=== PATIENT | female | born 1935 | race Caucasian/White ===

== ENCOUNTER 2016-11-06 10:51 | Emergency (ER) | payer BC, OTHER ==
[2016-11-06 11:22] VITALS: PULSE 66; BMI 23.6
--- NOTE | 2016-11-06 12:13 | PDOC ---
History of Present Illness - General Chief Complaint: Injury Stated Complaint: KNEE PAIN Time Seen by Provider: 11/06/16 12:01 Past History - Past Medical History Allergies/Adverse Reactions: Allergies Allergy/AdvReac Type Severity Reaction Status Date / Time atorvastatin calcium Allergy Verified 06/09/15 10:30 [From Lipitor] diphenhydramine HCl Allergy Verified 06/09/15 10:30 [From Benadryl] erythromycin base Allergy Verified 06/09/15 10:30 [Erythromycin Base] meperidine HCl [From Demerol] Allergy Verified 06/09/15 10:30 lobster Allergy Uncoded 06/09/15 10:30 Home Medications: Ambulatory Orders Albuterol 0.083% Nebulizer Hilda [Ventolin 0.083% Nebulizer Soln -] 1 neb NEB Q6H 11/06/16 Amlodipine Besylate [Norvasc -] 5 mg PO DAILY 11/06/16 Clonazepam [KlonoPIN] 0.5 mg PO DAILY 11/06/16 Docusate Sodium [Colace -] 200 mg PO DAILY 11/06/16 Donepezil HCl [Aricept] 10 mg PO DAILY 11/06/16 Ipratropium 0.02% Nebulizer [Atrovent] 1 neb NEB TID 11/06/16 Levothyroxine Sodium [Synthroid] 88 mcg PO DAILY 11/06/16 Memantine HCl [Namenda Xr] 28 mg PO DAILY 11/06/16 Metformin HCl [Glucophage -] 500 mg PO BID 11/06/16 Mirtazapine 30 mg PO DAILY 11/06/16 Olanzapine [Zyprexa] 5 mg PO DAILY 11/06/16 Polyethylene Glycol 3350 [Miralax (For Daily Use) -] 17 gm PO DAILY 11/06/16 COPD: Yes Dementia: Yes Diabetes: Yes HTN: Yes Hypercholesterolemia: Yes Psychiatric Problems: Yes (panic attacks,depression,anxiety) Thyroid Disease: Yes - Surgical History Abdominal Surgery: Yes (inguinal hernia) - Immunization History Immunization Up to Date: Yes - Psycho/Social/Smoking Cessation Hx Anxiety: Yes Suicidal Ideation: No Smoking History: Former smoker Have you smoked in the past 12 months: No If you are a former smoker, when did you quit?: years Information on smoking cessation initiated: No 'Breaking Loose' booklet given: 03/24/14 Hx Alcohol Use: No Drug/Substance Use Hx: No Substance Use Type: None Hx Substance Use Treatment: No *Physical Exam - Vital Signs Last Vital Signs Temp Pulse Resp BP Pulse Ox 97.9 F 66 20 200/94 97 11/06/16 11:18 11/06/16 11:18 11/06/16 11:18 11/06/16 11:18 11/06/16 11:22 ED Treatment Course - LABORATORY CBC & Chemistry Diagram: 11/06/16 13:00 11/06/16 13:00 *DC/Admit/Observation/Transfer Diagnosis at time of Disposition: Fall Qualifiers: Encounter type: initial encounter Qualified Code(s): W19.XXXA - Unspecified fall, initial encounter Dementia Qualifiers: Dementia type: unspecified type Dementia behavioral disturbance: without behavioral disturbance Qualified Code(s): F03.90 - Unspecified dementia without behavioral disturbance - Discharge Dispostion Disposition: HOME Condition at time of disposition: Good Admit: No - Referrals Referrals: Lonnie Montenegro MD [Primary Care Provider] - - Patient Instructions Printed Discharge Instructions: How to Prevent Falls Additional Instructions: You fell today. All of your testing was negative. Your head CT was negative. You may return to the long-term. Resume your medications. Follow up with your primary care doctor. Return to the ED if you pass out, have worsening pain, or any changes in your symptoms.
[2016-11-06 13:26] LABS: URINE APPEARANCE CLEAR; URINE BILIRUBIN NEGATIVE (NEGATIVE); URINE BLOOD NEGATIVE (NEGATIVE); URINE COLOR LTYELLOW; URINE GLUCOSE (UA) NEGATIVE (NEGATIVE); URINE KETONE NEGATIVE (NEGATIVE); URINE LEUK ESTERASE TRACE (NEGATIVE); URINE NITRITE NEGATIVE (NEGATIVE); URINE PROTEIN NEGATIVE (NEGATIVE); URINE UROBILINOGEN NEGATIVE mg/dL (0.2-1.0)
[2016-11-06 13:39] LABS: CALCIUM OXALATE CRYSTALS RARE /hpf (NONE SEEN); URINE MUCUS RARE; URINE WBC 2 /hpf (3-5)
[2016-11-06 13:39] LABS: INR 1.26 (0.82-1.09); PROTHROMBIN TIME (PATIENT) 13.9 SEC (9.98-11.88)
[2016-11-06 13:50] LABS: ALBUMIN 3.1 g/dl (3.4-5.0); ALK PHOS 80 U/L (45-117); ANION GAP 6 (8-16); BILIRUBIN,TOTAL 0.4 mg/dL (0.2-1.0); CALCIUM 9.8 mg/dL (8.5-10.1); CO2 33 mmol/L (21-32); CPK 47 IU/L (26-192); CREATININE 0.7 mg/dL (0.55-1.02); GLUCOSE,RANDOM 97 mg/dL (74-106); MAGNESIUM 1.9 mg/dL (1.8-2.4); SGOT/AST 17 U/L (15-37); SGPT/ALT 31 U/L (12-78); TOT PROT 6.2 g/dl (6.4-8.2); TROPONIN I < 0.02 ng/ml (0.00-0.05)
[2016-11-06 14:07] LABS: BASOPHIL 0.6 % (0-2.0); EOSINOPHIL 0.1 % (0-4.5); MCH 29.1 pg (25.7-33.7); MCHC 32.9 g/dl (32.0-36.0); MEAN CELL VOLUME 88.5 fl (80-96); MEAN PLT VOLUME 7.6 fl (7.5-11.1); NEUTROPHILS 66.9 % (42.8-82.8); PLATELET COUNT 148 K/MM3 (134-434); RDW 14.9 % (11.6-15.6); WHITE BLOOD COUNT 7.4 K/mm3 (4.0-10.0)
[2016-11-06 15:56] VITALS: BP 176/86; TEMP 98.7
--- NOTE | 2016-11-06 17:15 | EKG ---
Test Reason : Blood Pressure : / mmHG Vent. Rate : 061 BPM Atrial Rate : 061 BPM P-R Int : 184 ms QRS Dur : 112 ms QT Int : 426 ms P-R-T Axes : 040 008 033 degrees QTc Int : 428 ms NORMAL SINUS RHYTHM POSSIBLE LEFT ATRIAL ENLARGEMENT INCOMPLETE RIGHT BUNDLE BRANCH BLOCK INFERIOR INFARCT (CITED ON OR BEFORE 21-APR-2015) ABNORMAL ECG WHEN COMPARED WITH ECG OF 22-APR-2015 08:49, INCOMPLETE RIGHT BUNDLE BRANCH BLOCK BASELINE ARTIFACTS Confirmed by TERESITA PIERCE MD ([id number]) on 11/06/2016 5:15:12 PM Referred By: Confirmed By:TERESITA PIERCE MD
== END 2016-11-06 20:05 | disposition home or self-care (01) ==
LOC: JER 10:51
DX: F03.90 Unspecified dementia, unspecified severity, without behavioral disturbance, psychotic disturbance, mood disturbance, and anxiety (principal); W18.39XA Other fall on same level, initial encounter; Y93.89 Activity, other specified; Y92.9 Unspecified place or not applicable
CPT/HCPCS: 36415; 70450-TC; 71010-TC; 80053; 81003; 81015; 83605; 83735; 84484; 85025; 85610; 87040; 87086; 93005; 93010; 99283-25

== ENCOUNTER → 2017-05-07 | Emergency (ER) | payer OTHER ==
[~2017-05-07] MED LIST: RAPID SEQUENCE INTUBATION KIT NR ONE; SODIUM CHLORIDE 0.9%/KCL 20 MEQ/1,000 ML INFUS.BAG IV SCH; SODIUM CHLORIDE 1,000 ML IV SCH
--- NOTE | 2017-05-07 21:21 | PDOC ---
History of Present Illness <Sharda Quintanilla - Last Filed: 05/08/17 00:42> - General History Source: Patient Exam Limitations: No Limitations - History of Present Illness Initial Comments: 05/07/17 23:35 The patient is a 81 year old female with past medical history of hypertension, hyperlipidemia, hypothyroidism, COPD, dementia, anxiety, and depression who arrives to the ED via EMS from [facility] and was found at approximately 8pm tonight to be unresponsive, with a right facial droop and drooling. As per [facility] records, the patient is usually alert and oriented x4, talking, and wheelchair bound. Last known normal was reported by the nurse at [facility] at about 7 pm today. In the ED, the patient is somulent and stimulated by painful stimuli. No further history can be provided. <Aliyah Mann - Last Filed: 05/08/17 01:23> - General Stated Complaint: POSSIBLE STROKE Past History - Past Medical History COPD: Yes Dementia: Yes Diabetes: Yes HTN: Yes Hypercholesterolemia: Yes Psychiatric Problems: Yes (panic attacks,depression,anxiety) Thyroid Disease: Yes - Surgical History Abdominal Surgery: Yes (inguinal hernia) - Immunization History Immunization Up to Date: Yes - Suicide/Smoking/Psychosocial Hx Smoking History: Former smoker Have you smoked in the past 12 months: No If you are a former smoker, when did you quit?: years 'Breaking Loose' booklet given: 05/25/13 Hx Alcohol Use: No Drug/Substance Use Hx: No Substance Use Type: None Hx Substance Use Treatment: No <Sharda Quintanilla - Last Filed: 05/08/17 00:42> <Aliyah Mann - Last Filed: 05/08/17 01:23> - Past Medical History Allergies/Adverse Reactions: Allergies Allergy/AdvReac Type Severity Reaction Status Date / Time atorvastatin calcium Allergy Verified 06/09/15 10:30 [From Lipitor] diphenhydramine HCl Allergy Verified 06/09/15 10:30 [From Benadryl] erythromycin base Allergy Verified 06/09/15 10:30 [Erythromycin Base] meperidine HCl [From Demerol] Allergy Verified 06/09/15 10:30 lobster Allergy Uncoded 06/09/15 10:30 Home Medications: Ambulatory Orders Albuterol 0.083% Nebulizer Hilda [Ventolin 0.083% Nebulizer Soln -] 1 neb NEB Q6H 11/06/16 Amlodipine Besylate [Norvasc -] 5 mg PO DAILY 11/06/16 Docusate Sodium [Colace -] 200 mg PO DAILY 11/06/16 Donepezil HCl [Aricept] 10 mg PO DAILY 11/06/16 Ipratropium 0.02% Nebulizer [Atrovent] 1 neb NEB TID 11/06/16 Levothyroxine Sodium [Synthroid] 88 mcg PO DAILY 11/06/16 Memantine HCl [Namenda Xr] 28 mg PO DAILY 11/06/16 Mirtazapine 30 mg PO DAILY 11/06/16 Olanzapine [Zyprexa] 5 mg PO DAILY 11/06/16 Polyethylene Glycol 3350 [Miralax (For Daily Use) -] 17 gm PO DAILY 11/06/16 clonazePAM [KlonoPIN] 0.5 mg PO DAILY 11/06/16 metFORMIN HCL [Glucophage -] 500 mg PO BID 11/06/16 Review of Systems - Review of Systems Able to Perform ROS?: No (somulent/unresponsive) <Aliyah Mann - Last Filed: 05/08/17 01:23> *Physical Exam - Physical Exam Comments: 05/08/17 01:18 GENERAL: Well developed, well nourished. Awake and alert. No acute distress. HEENT: Normocephalic, atraumatic. Pupils 2 mm in diameter. EOMI. No conjunctival pallor. Sclera are non-icteric. Moist mucous membranes. Oropharynx is clear. NECK: Supple. Full ROM. No JVD. Carotid pulses 2+ and symmetric, without bruits. No thyromegaly. No lymphadenopathy. CARDIOVASCULAR: Regular rate and rhythm. No murmurs, rubs, or gallops. Distal pulses are 2+ and symmetric. PULMONARY: No evidence of respiratory distress. Lungs clear to auscultation bilaterally. No wheezing, rales or rhonchi. ABDOMINAL: Well healed abdominal incision with large reducible hernias. Soft. Non-tender. Non-distended. No rebound or guarding. No organomegaly. Normoactive bowel sounds. MUSCULOSKELETAL Normal range of motion at all joints. No bony deformities or tenderness. No CVA tenderness. EXTREMITIES: No cyanosis. No clubbing. No edema. No calf tenderness. SKIN: Warm and dry. Normal capillary refill. No rashes. No jaundice. NEUROLOGICAL: Aphasia, nonverbal. Neglect of R side, unable to raise R arm. Withdrew to pain on left leg. Alert, awake, appropriate. = Normoreflexic in the upper and lower extremities. Toes are down-going bilaterally. <Aliyah Mann - Last Filed: 05/08/17 01:23> NIH Stroke Scale - Last Known Well Date/Time & Onset Date Last Known Well: 05/07/17 Time Last Known Well: 19:00 - Initial Evaluation Level of consciousness: Not alert, requires repeat stimulation to attend Ask patient the month and their age: Both incorrect Ask patient to open & close eyes; make fist and let go: Both incorrect Best gaze (horizontal eye movement): Normal Visual field testing: No visual field loss Facial paresis (Show teeth/raise eyebrows/close eyes tight): Minor paralysis ( flattened nasolabial fold, asymmetry on smiling) Motor Function: Left Arm: Normal Motor Function: Right Arm: No effort against gravity Motor Function: Left Leg: Some effort against gravity Motor Function: Right Leg: No effort against gravity Limb Ataxia: Untestable (Joint fused or limb amputated), explain: Sensory(Use pinprick test arms,legs,trunk,face/side to side): Mild to moderate decrease in sensation Best language (Describe picture, name items, read sentences): Severe aphasia Dysarthria (read several words): Near unintelligible or unable to speak Extinction and Inattention: Inattention or extinction bilaterally to one of the sensory modalities - Total Score NIH Stroke Scale Score: 21 <Sharda Quintanilla - Last Filed: 05/08/17 00:42> tPA Exclusion Checklist 0-3hr - Time Elapsed Date last known well: 05/07/17 Time last known well: 19:00 Elaspsed time: Day(s) and 5 Hour(s) and 42 Minutes - Exclusion Criteria 0-3hr SBP greater than 185 or DBP greater than 110mmHg despite tx: No Recent IC/spinal surgery,head trauma or stroke w/in last 3mo: No Hx of previous IC hemorrhage, IC neoplasm, AVM or aneurysm: No Active internal bleeding: No Blding diathesis(low plt ct, inc PTT,INR>1.7 or use of NOAC): No Symptoms suggest subarachnoid hemorrhage: No CT demonstrates multilobar infarct(>1/3 cerebral hemiphere): Yes Arterial puncture at noncompressible site in previous 7 days: No Blood glucose concentration less than 50mg/dL (2.7mmol/L): No - Relative Exclusion Criteria 0-3h Life expectancy <1yr/severe co-morbid illness/[facility] on admit: No : No Patient/family refused: No Rapid improvement: No Stroke severity too mild: No Recent acute AR (w/in previous 3 months): No Seizure at onset with postictal residual neuro impairments: No Major surgery or serious trauma w/in previous 14 days: No Recent GI or hemorrhage (w/in previous 21 days): No - Ineligibility reason(s) Reasons No tPA given: Outside of window - delayed arrival (also spoke w Dr Valero and he felt she was an intervention candidate/called) <Sharda Quintanilla - Last Filed: 05/08/17 00:42> tPA Exclusion checklist 3-4.5h - Time Elapsed Date last known well: 05/07/17 Time last known well: 19:00 Elaspsed time: Day(s) and 5 Hour(s) and 42 Minutes - Thrombolytic Therapy Candidate Is patient eligible for thrombolytic therapy: No - Exclusion Criteria 3-4.5 hr SBP greater than 185 or DBP greater than 110mmHg despite tx: No Recent IC/spinal surgery,head trauma or stroke<3mos.: No Hx IC hemorrhage, IC neoplasm, AV malformation or aneurysm: No Active internal bleeding: No Blding diathesis(low plt ct, inc PTT,INR>1.7 or use of NOAC): No Symptoms suggest subarachnoid hemorrhage: No CT demonstrates multilobar infarct(>1/3 cerebral hemiphere): No Arterial puncture at noncompressible site in previous 7 days: No Blood glucose concentration less than 50mg/dL (2.7mmol/L): No - Relative Exclusion Criteria 3-4.5 hr Life expectancy <1 yr or severe co-morbid illness: No : No Patient/family refused: No Rapid improvement: No Stroke severity too mild: No Recent acute AR (w/in previous 3 months): No Seizure at onset with postictal residual neuro impairments: No Major surgery or serious trauma w/in previous 14 days: No Recent GI or hemorrhage (w/in previous 21 days): No - Add'l Relative Exclusion 3-4.5 hr Age > 80: No Hx of both diabetes AND prior ischemic stroke: No Taking an oral anticoagulant regardless of INR: No NIHSS >25: No - Ineligibility reason(s) Reasons No tPA given: Outside of window - delayed arrival (DR Valero felt she was a good candidate for intervention and not tpa because size of infarct) <Sharda Quintanilla - Last Filed: 05/08/17 00:42> Critical Care Time/MDM Note - Medical Decision Making Note: 05/08/17 00:[address] Valero and he felt the patient should go to [facility] her to see if intervention was possible. I did speak to neurosurgeon from [facility] her after calling the stroke code [phone]- Dr Arguello felt she was only a borderline candidate for intervention but spoke with the next of kin Anaid Barrera who was also the health care proxy , They will redo her ct scan upon arrival and make a decision a that time [facility] team came and transported <Sharda Quintanilla - Last Filed: 05/08/17 00:42> Total Critical Care Time: 90 Critical Care Statement: The care of this patient involved high complexity decision making to prevent further life threatening deterioration of the patient 's condition and/or to evaluate & treat vital organ system(s) failure or risk of failure. - Medical Decision Making Note: 05/07/17 23:38 Phone call placed to neurology application analyst, awaiting call back. 05/07/17 23:46 Second phone call placed to neurology application analyst. Call was connected immediately and case was discussed with Dr. Valero. 05/08/17 00:07 Phone calls made to Neurology at [facility]. Case is in the process of being discussed. <Aliyah Mann - Last Filed: 05/08/17 01:23> Discharge Disposition - Transfer to Acute Care Facility Receiving Facility: [facility] Accepting Physician:: DR ARGUELLO [phone] Transfer comment: 05/08/17 00:26 CODE BRAIN neuro intervention <Sharda Quintanilla - Last Filed: 05/08/17 00:42> <Aliyah Mann - Last Filed: 05/08/17 01:23> - Diagnosis Cerebrovascular accident (CVA) Qualifiers: CVA mechanism: other Qualified Code(s): I63.8 - Other cerebral infarction - Referrals Referrals: Lonnie Montenegro MD [Primary Care Provider] - - Patient Instructions - Post Discharge Activity ED Treatment Course - LABORATORY CBC & Chemistry Diagram: 05/07/17 22:08 05/07/17 22:08 <Sharda Quintanilla - Last Filed: 05/08/17 00:42> - LABORATORY CBC & Chemistry Diagram: 05/07/17 22:08 05/07/17 22:08 - ADDITIONAL ORDERS Additional order review: Laboratory Results 05/07/17 05/07/17 05/07/17 22:08 22:08 22:08 PT with INR 13.00 H INR 1.15 H Sodium 146 H Potassium 2.9 L* Chloride 115 H Carbon Dioxide 22 Anion Gap 9 BUN 24 H Creatinine 0.4 L Creat Clearance w eGFR > 60 Random Glucose 148 H Calcium 7.0 L Total Bilirubin 0.3 D AST 8 L ALT 9 L Alkaline Phosphatase 67 Creatine Kinase 18 L Troponin I < 0.02 Total Protein 4.9 L Albumin 2.4 L Triglycerides 57 Cholesterol 186 Total LDL Cholesterol 126 H HDL Cholesterol 41 Blood Type O POSITIVE Antibody Screen Negative 05/07/17 22:08 RBC 4.72 MCV 88.1 MCHC 33.8 RDW 15.2 MPV 7.7 Neutrophils % 84.4 H D Lymphocytes % 9.7 D Monocytes % 5.6 Eosinophils % 0.0 D Basophils % 0.3 - RADIOLOGY Radiograph Interpretation: 05/08/17 00:[address] as reviewed by DR. Santoro reports nonhemmorhagic acute left MCA territory infarct as described above. Hyperdense origin of the left MCA could be due to thrombosis and/or calcification. Generalized age related volume loss, moderate microvascular ischemic changes chronic infarcts as above, similar to 11/06/2016. Non contrast Brain MRI as reviewed by Dr. Santoro reports 1. hyperacute large left MCA territory infarct involving the insula, gangliocapsular region, temporal and parietal lobes. Mild local mass effects without midline shift, herniation, or hydrocephalus. 2. Single focus of petechial blood product in the left parietal lobe may be chronic or acute. This was not definitely present on 06/25/2014 MRI. However, this could be due to difference in technique. 3. 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 The proximal extent of the left internal carotid artery occlusion is not included in the field of view. Further evaluation with MRA neck is suggested. Patent left BRANDY with retrograde filling via a patent anterior communicating artery. 4. Generalized age related volume loss moderate chronic microvascular ischemis changes with chronic lacunar infarct. <Aliyah Mann - Last Filed: 05/08/17 01:23>
[2017-05-07 22:31] LABS: BASO % 0.3 % (0-2.0); HEMATOCRIT 41.6 % (32.4-45.2); LYMPH % 9.7 % (8-40); MCH 29.7 pg (25.7-33.7); MCHC 33.8 g/dl (32.0-36.0); MEAN CELL VOLUME 88.1 fl (80-96); MEAN PLT VOLUME 7.7 fl (7.5-11.1); MONO % 5.6 % (3.8-10.2); NEUT % 84.4 % (42.8-82.8); PLATELET COUNT 180 K/MM3 (134-434); RBC 4.72 M/mm3 (3.60-5.2); RDW 15.2 % (11.6-15.6); WHITE BLOOD COUNT 12.2 K/mm3 (4.0-10.0)
[2017-05-07 22:46] LABS: INR 1.15 (0.82-1.09)
[2017-05-07 22:50] LABS: ALBUMIN 2.4 g/dl (3.4-5.0); ANION GAP 9 (8-16); BILIRUBIN,TOTAL 0.3 mg/dL (0.2-1.0); BLOOD UREA NITROGEN 24 mg/dL (7-18); CHLORIDE 115 mmol/L (98-107); CHOLESTEROL 186 mg/dL (50-200); CO2 22 mmol/L (21-32); CREATININE 0.4 mg/dL (0.55-1.02); GLUCOSE,RANDOM 148 mg/dL (74-106); LDL CHOLESTEROL (ONLY SJRH) 126 mg/dL (5-100); SGOT/AST 8 U/L (15-37); SGPT/ALT 9 U/L (12-78); SODIUM 146 mmol/L (136-145); TOT PROT 4.9 g/dl (6.4-8.2); TRIGLYCERIDES 57 mg/dL (35-160)
[2017-05-07 22:51] LABS: ALK PHOS 67 U/L (45-117); HDL CHOLESTEROL 41 mg/dL (40-60)
[2017-05-07 22:55] LABS: POTASSIUM 2.9 mmol/L (3.5-5.1)
[2017-05-08 00:03] VITALS: BP 148/58; PULSE 71; TEMP 99.4; BMI 27.5
== END | disposition short-term general hospital (02) ==
LOC: JER 21:20
PROC: 3E0337Z Introduction of Electrolytic and Water Balance Substance into Peripheral Vein, Percutaneous Approach (ICD-10-PCS; principal; 2017-05-07)
DX: I63.8 Other cerebral infarction (principal); I10 Essential (primary) hypertension; E78.5 Hyperlipidemia, unspecified; E03.9 Hypothyroidism, unspecified; F32.9 Major depressive disorder, single episode, unspecified; F41.0 Panic disorder [episodic paroxysmal anxiety]; F41.9 Anxiety disorder, unspecified; J44.9 Chronic obstructive pulmonary disease, unspecified; Z88.8 Allergy status to other drugs, medicaments and biological substances; Z91.013 Allergy to seafood; Z79.84 Long term (current) use of oral hypoglycemic drugs
CPT/HCPCS: 36415; 70450-TC; 70544-TC; 70551-TC; 80053; 82465; 82550; 83718; 83721; 84478; 84484; 85025; 85610; 86850; 86900; 86901; 99284-25